=== PATIENT | male | born 1935 | race Caucasian/White ===

== ENCOUNTER 2016-11-03 06:05 | Emergency (ER) | payer MEDICARE, OTHER ==
[~2016-11-03] VITALS: Ht 177.8 cm; Wt 113.4 kg
[2016-11-03] MEDS ORDERED: OXYMETAZOLINE 0.05% NASAL SPRAY 30ML BOTTLE. NS ONE (06:15)
[2016-11-03 06:37] LABS: BASO # 0.1 x10^3/uL (0.0-0.2); BASO % 1 % (0-3); EOS % 2 % (0-3); HEMATOCRIT 44.3 % (39.0-53.0); HEMOGLOBIN 14.4 g/dL (13.0-17.5); LYMPH # 2.2 x10^3/uL (1.0-4.8); LYMPH % 27 % (24-48); MEAN CORPUSCULAR HEMOGLOBIN 31 pg (25-35); MEAN CORPUSCULAR HGB CONC 33 g/dL (31-37); MEAN CORPUSCULAR VOLUME 94 fL (79-100); MONO % 7 % (0-9); NEUT % 63 % (31-73); PLATELET COUNT 239 x10^3/uL (140-400); RED BLOOD COUNT 4.72 x10^6/uL (4.30-5.70); RED CELL DISTRIBUTION WIDTH 14.2 % (11.5-14.5); WHITE BLOOD COUNT 8.3 x10^3/uL (4.0-11.0)
--- NOTE | 2016-11-03 06:47 | PHYS DOC ---
Past Medical History Past Medical History: CVA, Diabetes-Type II, High Cholesterol, Hypertension, PA Past Surgical History: Cholecystectomy, Coronary Bypass Surgery, Tonsillectomy Additional Past Surgical Histo: mastodectomy, vein graft right FA Alcohol Use: None Drug Use: None Adult General Chief Complaint Chief Complaint: NOSEBLEED HPI HPI Patient is a 81 year old male who presents with epistaxis. Patient reports that he has been bleeding from his R nare since yesterday afternoon. No clear inciting event. He does take plavix and aspirin. The nosebleed stopped for a period of time overnight, but then started again ~0430. No SOB, no other acute complaints. Of note, patient noted to be hypertensive on arrival; he takes multiple meds for HTN, but hot not taken as of yet this morning. Review of Systems Review of Systems Constitutional: Denies fever or chills HENT: Epistaxis from R nare Respiratory: Denies cough or shortness of breath Cardiovascular: Denies chest pain GI: Denies abdominal pain, nausea, vomiting, or diarrhea Neurologic: Denies headache, focal weakness or sensory changes Current Medications Current Medications Current Medications Medications (Trade) Dose Ordered Sig/Jorje Start Time Stop Time Status Last Admin Dose Admin Labetalol HCl (Normodyne) 20 mg 1X ONCE 11/03/16 07:00 11/03/16 07:01 DC 11/03/16 06:31 20 MG Oxymetazoline HCl (Afrin) 120 spray STK-MED ONCE 11/03/16 06:15 11/03/16 06:16 DC Allergies Allergies Allergies Coded Allergies Type Severity Reaction Last Updated Verified No Known Drug Allergies 11/03/16 No Physical Exam Physical Exam Constitutional: Well developed, well nourished, no acute distress, non-toxic appearance HENT: Normocephalic, atraumatic, bilateral external ears normal; anterior bleeding from R nare; oropharynx clear Eyes: EOMI, conjunctiva normal, no discharge Neck: Normal range of motion, no stridor Cardiovascular: Heart rate normal, regular rhythm, no murmur Lungs & Thorax: Bilateral breath sounds clear to auscultation Extremities: No obvious deformity Neurologic: Alert and oriented X 3, no gross deficits noted Current Patient Data Vital Signs Vital Signs Date Time Temp Pulse Resp B/P Pulse Ox O2 Delivery O2 Flow Rate FiO2 1/5/17 07:19 68 18 163/69 98 Room Air Lab Values Laboratory Tests Test 11/03/16 06:30 White Blood Count 8.3x10^3/uL (4.0-11.0) Red Blood Count 4.72x10^6/uL (4.30-5.70) Hemoglobin 14.4g/dL (13.0-17.5) Hematocrit 44.3% (39.0-53.0) Mean Corpuscular Volume 94fL (79-100) Mean Corpuscular Hemoglobin 31pg (25-35) Mean Corpuscular Hemoglobin Concent 33g/dL (31-37) Red Cell Distribution Width 14.2% (11.5-14.5) Platelet Count 239x10^3/uL (140-400) Neutrophils (%) (Auto) 63% (31-73) Lymphocytes (%) (Auto) 27% (24-48) Monocytes (%) (Auto) 7% (0-9) Eosinophils (%) (Auto) 2% (0-3) Basophils (%) (Auto) 1% (0-3) Neutrophils # (Auto) 5.2x10^3uL (1.8-7.7) Lymphocytes # (Auto) 2.2x10^3/uL (1.0-4.8) Monocytes # (Auto) 0.6x10^3/uL (0.0-1.1) Eosinophils # (Auto) 0.1x10^3/uL (0.0-0.7) Basophils # (Auto) 0.1x10^3/uL (0.0-0.2) Laboratory Tests 11/03/16 06:30 EKG EKG [] Radiology/Procedures Radiology/Procedures [] Course & Med Decision Making Course & Med Decision Making Pertinent Labs and Imaging studies reviewed. (See chart for details) Patient is 81 year old male who presents with epistaxis from R nare. Likely related to dry air and hypertension. Patient on DAPT. Patient instructed to blow nose to clear clots; after this, two sprays of oxymetazoline were administered to the R nare and pressure was applied using nasal clip. CBC sent to check for significant anemia; hgb 14.4. Patient noted to be hypertensive on arrival, SBP >200. Dose of labetalol given with subsequent improvement in BP. After ~15 minutes, the nasal clip was removed with no active hemorrhage noted. Patient was observed for an additional period of time after this, with no further bleeding noted. Discussed further management with patient (e.g. instructions to take BP meds once he gets home, use of humidifier at home). Patient discharged home with instructions for follow up with ENT and return precautions if there is any further bleeding. Dragon Disclaimer Dragon Disclaimer This electronic medical record was generated, in whole or in part, using a voice recognition dictation system. Departure Departure Impression: Primary Impression: Epistaxis Disposition: HOME, SELF-CARE Condition: IMPROVED Referrals: KANDACE VARNER MD (PCP) DEBBIE SANTANA MD Patient Instructions: Nosebleed Additional Instructions: Thank you for allowing us to provide care today in the Emergency Department. Use the provided nasal spray as directed. Follow the directions on the label. Schedule a follow up appointment with your primary care doctor and with an ENT using the provided contact information. Return promptly to the Emergency Department if you develop any new or concerning symptoms, such as further bleeding. ROBIN TAYLOR MD Nov 03, 2016 06:47
[2016-11-03] MEDS ORDERED: LABETALOL 20 MG/4 ML DISP.SYRIN. IVP ONE (07:00)
[2016-11-03 07:19] VITALS: BP 163/69
== END 2016-11-03 07:20 | disposition home or self-care (01) ==
LOC: ER 06:05
DX: R04.0 Epistaxis (principal); I25.2 Old myocardial infarction; I10 Essential (primary) hypertension; E78.00 Pure hypercholesterolemia, unspecified; E11.9 Type 2 diabetes mellitus without complications; Z86.73 Personal history of transient ischemic attack (TIA), and cerebral infarction without residual deficits; Z79.02 Long term (current) use of antithrombotics/antiplatelets; Z79.82 Long term (current) use of aspirin; Z95.1 Presence of aortocoronary bypass graft; Z90.10 Acquired absence of unspecified breast and nipple; Z90.49 Acquired absence of other specified parts of digestive tract
CPT/HCPCS: 36415; 85027; 96374; 99284; J3490